=== PATIENT | female | born 1975 | race Caucasian/White ===

== ENCOUNTER → 2016-09-14 10:50 | Outpatient (CLI) | payer OTHER | END | disposition home or self-care (01) | LOC: D.CT 10:50 | DX: R10.31 Right lower quadrant pain (principal) ==

== ENCOUNTER → 2016-09-17 08:39 | Outpatient (CLI) | payer OTHER | END | disposition home or self-care (01) | LOC: D.US 08:39 | DX: R10.2 Pelvic and perineal pain (principal) ==

== ENCOUNTER → 2017-08-05 20:25 | Outpatient (CLI) | payer OTHER | END | disposition home or self-care (01) | LOC: D.MAMMO 06-11 15:45 | DX: Z00.00 Encounter for general adult medical examination without abnormal findings (principal) ==

== ENCOUNTER → 2017-09-23 18:16 | Outpatient (CLI) | payer OTHER | END | disposition home or self-care (01) | LOC: D.MAMMO 10:00 | DX: R92.8 Other abnormal and inconclusive findings on diagnostic imaging of breast (principal) ==

== ENCOUNTER → 2018-04-22 09:55 | Outpatient (CLI) | payer OTHER | END | disposition home or self-care (01) | LOC: D.US 09:55 | DX: R10.9 Unspecified abdominal pain (principal) ==

== ENCOUNTER 2020-08-05 08:00 | Outpatient (CLI) | payer OTHER | END 2020-08-05 08:01 | disposition home or self-care (01) | LOC: D.MAMMO 08:00 | PROVIDERS: ATTEND Family Medicine | DX: Z12.31 Encounter for screening mammogram for malignant neoplasm of breast (principal) ==

== ENCOUNTER → 2020-08-22 09:09 | Outpatient (CLI) | payer OTHER | END | disposition home or self-care (01) | LOC: D.US 09:09 | PROVIDERS: ATTEND Family Medicine | DX: R92.8 Other abnormal and inconclusive findings on diagnostic imaging of breast (principal) ==